=== PATIENT | male | born 1980 | race Caucasian/White ===

== ENCOUNTER 2023-12-29 11:36 | Emergency (ER) | payer OTHER, SELFPAY ==
[2023-12-29 11:41] VITALS: BP 153/81
[2023-12-29 12:00] LABS: % Basophils 0.4 % (0-2); % Eosinophils 0.7 % (0-6); % Immature Granulocytes 0.4 % (0-0.5); % Lymphocytes 13.6 % (20.5-51.1); % Monocytes 9.9 % (1.7-9.3); Absolute Basophils 0.1 10^3/uL (0-0.2); Absolute Eosinophils 0.1 10^3/uL (0-0.7); Absolute Immature Granulocytes 0.1 10^3/uL (0-0.05); Absolute Lymphocytes 2.4 10^3/uL (1.2-3.4); Absolute Monocytes 1.7 10^3/uL (0.1-0.6); Absolute Neutrophils 13.2 10^3/uL (1.4-6.5); Hematocrit 44.7 % (39.0-52.0); Hemoglobin 15.9 g/dL (13.0-18.0); Mean Corp Hgb Conc. 35.6 g/dL (33.0-37.0); Mean Corpuscular Hgb 32.3 pg (27.0-31.0); Mean Corpuscular Volume 90.9 fL (80.0-94.0); Mean Platelet Volume 9.9 fL (7.4-10.4); Nucleated Red Blood Cells % 0 % (-); Platelet Count 288 10^3/uL (130-400); Red Blood Cell Count 4.92 10^6/uL (4.70-6.10); Red Cell Dist. Width 11.9 % (11.5-14.5); White Blood Cell Count 17.6 10^3/uL (4.8-10.8)
[2023-12-29 12:08] LABS: Urine Albumin Negative (Neg - Trace); Urine Bilirubin Negative (Negative); Urine Character Clear (Clear); Urine Color Yellow; Urine Glucose Negative (Negative); Urine Ketone Negative (Negative); Urine Leukocyte Negative (Negative); Urine Nitrite Negative (Negative); Urine Occult Blood 1+ (Negative); Urine Specific Gravity 1.025 (<1.030); Urine Urobilinogen Negative (Neg - 1+)
[2023-12-29 12:13] LABS: ALT (SGPT) 26 U/L (0-50); AST (SGOT) 22 U/L (17-59); Albumin 4.5 g/dl (3.5-5.0); Alkaline Phosphatase 96 U/L (38-126); Blood Urea Nitrogen 15 mg/dl (9-20); Calcium 10.2 mg/dl (8.4-10.2); Carbon Dioxide 28 mmol/L (22-30); Chloride 102 mmol/L (98-107); Glucose 138 mg/dl (70-99); Potassium 4.2 mmol/L (3.5-5.1); Sodium 134 mmol/L (135-145); Total Bilirubin 0.7 mg/dl (0.2-1.3); Total Protein 6.8 g/dl (6.3-8.2); eGFR > 60.00
[2023-12-29 12:42] VITALS: BP 147/79
[2023-12-29 13:01] LABS: Urine Red Blood Cell 0-2 /HPF (0-2); Urine Squamous Cell 0-2 /LPF (Few)
[2023-12-29 14:00] VITALS: BP 147/80
[2023-12-29] MEDS: NSS 1000 IV (14:03)
[2023-12-29] MEDS: TORADOL 30 MG IV (14:03)
--- NOTE | 2023-12-29 14:31 | ED.GENMED ---
History of Present Illness
General
Chief Complaint: Abdominal Symptoms
Source: patient
Exam Limitations: none
Time Seen by Provider: 12/29/23 13:48
Nursing documentation reviewed up to this point in time: agreed with
History of Present Illness
History of Present Illness:
pt is a 43 yo M with h/o HTN, kidney stones
started 3 days ago feeling some LLQ pain, thought he was constipated, his stools are usually pretty regular but he had dec volume of stool. pain got worse yesterday, but still able to eat/drink
then today he tried colace and senna, had a little looser nonbloody stool but pain didn't get better
now feeling some chills and doesn't feel well
no h/o diveritculitis, never had oclonoscopy
this does not feel like typical kidney stone pain
Past History
Past History
ED Past Medical History: HTN and Other (kidney stones)
ED Past Surgical History: Orthopedic
Social History
Tobacco: Non-smoker
Alcohol: Occasional
Drug: None
Personal:
Living: with family
Employment: Employed
Review of Systems
Review of Systems
Allergies reviewed?: Yes
All Other Systems: Not applicable
Phy Exam
Physical Exam
Physical Exam:
GENERAL: Alert , in no apparent distress
EYE: pupils equal and reactive
NECK: Supple
ENT: o/p clr, mmm.
CARDIAC: Regular rate and rhythm .
LUNGS: Clear breath sounds bilaterally, no acute respiratory distress, no wheezes/rales/rhonchi
ABDOMEN: Soft, mild left lower quad tendenress, no r/g, no cvat, normal bowel sounds
NEUROLOGICAL: Alert and oriented, no focal neuro deficits
SKIN: Warm and dry, skin intact.
MUSCULOSKELETAL: No edema, well perfused.
PSYCH: Normal and appropriate interaction.
Course
Orders/Labs/Results
Orders:
Orders
12/29/23 11:48
Complete Blood Count/With Diff Urgent
Comprehensive Metabolic Panel Urgent
12/29/23 12:00
Urinalysis Reflex To Culture Urgent
Date Specimen was Collected: 12/29/23
Time Specimen was Collected: 11:44
Urine Microscopic Reflex Cult Urgent
12/29/23 14:00
CT Abd/Pel (IV only)-DH only Urgent
Comment:
Reason For Exam: llq pain, fever, suspect divertic
0.9% Sodium Chloride 1000 ml [Nss] 1,000 ml IV BOLUS
Ketorolac [Toradol] 30 mg IV NOW STA
12/29/23 17:29
Ampicillin/Sulbactam 3 G [Unasyn] 3 gm 0.9% Sodium Chloride 100 ml [Nss] 100 ml IV NOW
Abnormal Lab Results
12/29/23 12/29/23
11:48 12:00
WBC 17.6 H 10^3/uL
(4.8-10.8)
MCH 32.3 H pg
(27.0-31.0)
Abs Immat Gran (auto) 0.1 H 10^3/uL
(0-0.05)
Absolute Neuts (auto) 13.2 H 10^3/uL
(1.4-6.5)
Absolute Monos (auto) 1.7 H 10^3/uL
(0.1-0.6)
Lymphocytes % 13.6 L %
(20.5-51.1)
Monocytes % 9.9 H %
(1.7-9.3)
Sodium 134 L mmol/L
(135-145)
Glucose 138 H mg/dl
(70-99)
Ur Occult Blood Reflex 1+ A
(Negative)
12/29/23 11:48
12/29/23 11:48
Vital Signs
Temp: 99.4 F
Initial and Last Documented VS:
Initial Vital Signs
Temp Pulse Resp BP Pulse Ox
98.0 F 91 16 153/81 97
12/29/23 11:41 12/29/23 11:41 12/29/23 11:41 12/29/23 11:41 12/29/23 11:41
Last Documented Vital Signs
Temp Pulse Resp BP Pulse Ox
99.4 F 62 18 137/82 98
12/29/23 14:35 12/29/23 18:18 12/29/23 18:18 12/29/23 18:18 12/29/23 18:18
MDM/Problems Addressed
Differential Diagnosis Includes:
divertic, kidney stone,
MDM/Problems Addressed:
43 y/o M
h/o kidney stones
LLQ pain x 3 days
feels like he may be constipated
had some stool today looser after laxative but now low grade temp and doesn' feel well
no urinary sypmtoms
doesn't feel like kidney stone
no hprevious colonoscopy
denies blood in stool
well appearing
borderline temp 99
mild llq tenderness, no guarding or rebound
wbc [address] shows LLQ divertic uncomplicated
other incidentals shared, copy of report given
pain is ontrolled after toradol
wants to go home
will give a dose of unasyn and d/c on augmentin, since pt has had tendinopathy in the past
*Critical Care Note
Total Time (30-74mins, 75-104mins- exclusive of procedures): Not Applicable
ED Attending Note
-
Portions of this chart may have been created with voice recognition software.� Occasional wrong word or��sound alike� substitutions may have occurred due to the inherent limitations of voice recognition software.
Discharge Plan
Departure
Patient Disposition: Home (Routine Discharge)
Date of Disposition: 12/29/23
Time of Disposition: 18:13
Patient with high blood pressure during this ER visit?: No
Condition: Fair
Covid-19: Not Applicable
Discharge Problem:
Diverticulitis
Instructions: Clear Liquid Diet, Diverticulitis (DC)
Prescriptions:
New
amoxicillin-pot clavulanate 875-125 mg tablet
1 tab PO BID Qty: 20 0RF
Referrals:
NONE,* [Family Provider] -
Activity Restrictions/Additional Instructions:
YOUR CAT SCAN SHOWS MILD DIVERTICULITIS
YOU SHOULD EAT A CLEAR LIQUID DIET FOR 24-48 HOURS TO GIVE YOUR BOWELS REST.
TAKE AUGMENTIN 1 TAB TWICE A DAY FOR 1- DAYS STARTING TOMORROW
YOU CAN FOLLOW UP WITH YOUR FAMILY DOCTOR WELL A GI DOCTOR NEEDED
TREAT YOUR PAIN AND FEVER WITH TYLENOL OR MOTRIN
YOUR FEVER SHOULD BREAK WITHIN 1-2 DAYS
RETURN FOR: FEVER, WORSE PAIN, VOMITING, INABILITY TO TOLERATE LIQUIDS, BLOODY DIARRHEA OR ANY CONCERNS.
Interventions
Interventions:
*Risk Screen - Suicide Last Done: 12/29/23 12:37
*General Assessment Last Done: 12/29/23 12:37
*Neglect/Abuse Screening Last Done: 12/29/23 12:37
*ED COVID-19 Vaccine History Last Done: 12/29/23 12:37
*Nursing Disposition Last Done: 12/29/23 18:19
AF-Fleodx-Clqieojhgn Assessment Last Done: 12/29/23 12:38
Discharge Date and Time
Discharge Date/Time: 12/29/23 18:21
Print Language: PERSIAN
[2023-12-29 16:00] VITALS: BP 132/79
[2023-12-29] MEDS: UNASYN IV (17:36)
[2023-12-29 18:18] VITALS: BP 137/82
== END 2023-12-29 18:21 | disposition home or self-care (01) ==
LOC: EMR 11:36
PROVIDERS: Emergency Medicine; EMERGENCY PHYSICIAN Emergency Medicine
DX: K57.92 Diverticulitis of intestine, part unspecified, without perforation or abscess without bleeding (principal); R10.32 Left lower quadrant pain; I10 Essential (primary) hypertension; Z87.442 Personal history of urinary calculi
CPT/HCPCS: 99284; 96365; 96375; 74177; 80053; 81003; 81015; 85025; Q9967